=== PATIENT | male | born 1975 | race Caucasian/White ===

== ENCOUNTER 2017-12-24 18:38 | Emergency (ER) | payer SELFPAY ==
[~2017-12-24] VITALS: Ht 170.1 cm; Wt 81.6 kg
[~2017-12-24 18:38] MED LIST: ALBUTEROL0.09 MG/A2 INH; ALL DAY ALLERGY10 MG PO; ANAPROX DS550 MG PO; CLARITIN10 MG PO; CLEOCIN150 MG PO; DELTASONE20 M1 PO; GOOD NEIGHBOR150 MG PO; HYDROCODONE BIT1 T11 PO; IBU800 MG PO; LEVOFLOXACIN500 MG PO; MASON NATURAL2000 IU PO; PREDNISONE20 MG PO; ROBITUSSIN AC 110 ML PO; SKELAXIN800 MG PO
[2017-12-24] MEDS ORDERED: PROAIR HFA8.5 GM INH (20:40)
[2017-12-24] MEDS ORDERED: MEDROL DOSEPAK4 MG PO (20:40)
[2017-12-24] MEDS ORDERED: ZITHROMAX250 MG PO (20:40)
== END 2017-12-24 20:51 | disposition home or self-care (01) ==
LOC: ED 18:38
DX: J40 Bronchitis, not specified as acute or chronic (principal); F10.10 Alcohol abuse, uncomplicated; Z88.0 Allergy status to penicillin; Z79.899 Other long term (current) drug therapy

== ENCOUNTER 2018-02-26 22:06 | Emergency (ER) | payer SELFPAY ==
[~2018-02-26] VITALS: Ht 167.6 cm; Wt 81.6 kg
[~2018-02-26 22:06] MED LIST changes: +MEDROL DOSEPAK4 MG PO; +PROAIR HFA8.5 GM INH; +ZITHROMAX250 MG PO
[2018-02-26 22:36] LABS: HEMATOCRIT 42.2 % (42.0-52.0); MEAN CELL VOLUME 89.4 fl (80.0-94.0); MEAN CORPUSCULAR HGB 29.7 pg (27.0-31.0); MEAN CORPUSCULAR HGB CONC 33.2 g/dl (33.0-37.0); MEAN PLATELET VOLUME 9.9 fl (9.6-12.3); PLATELET COUNT AUTOMATED 347 10*3/uL (130-400); RED BLOOD COUNT 4.72 10*6/uL (4.50-5.90); RED CELL DISTRI WIDTH 13.2 % (0-14.5)
[2018-02-26 22:54] LABS: ALBUMIN 4.1 gm/dl (3.1-4.5); BUN 26 mg/dl (7-24); CHLORIDE 100 mmol/L (98-107); CREATININE 1.25 mg/dL (0.70-1.30); POTASSIUM 4.1 mmol/L (3.5-5.1); SGOT/AST 23 IU/L (3-35); SGPT/ALT 54 U/L (12-78); SODIUM 135 mmol/L (136-145); TOTAL PROTEIN 7.7 gm/dL (6.4-8.2)
[2018-02-26 22:55] LABS: PLATELET SUFFICIENCY NORMAL (NORMAL); TOTAL CELLS COUNTED 100 #CELLS
[2018-02-26 22:57] LABS: ALKALINE PHOSPHATASE 88 U/L (45-117); TROPONIN I < 0.015 ng/ml (<0.045)
[2018-02-26] MEDS ORDERED: SEPTDS PO (23:26)
== END 2018-02-26 23:48 | disposition home or self-care (01) ==
LOC: ED 22:06
PROVIDERS: Nurse Practitioner Family
DX: J40 Bronchitis, not specified as acute or chronic (principal); Z79.899 Other long term (current) drug therapy; Z88.0 Allergy status to penicillin

== ENCOUNTER → 2022-08-26 | Outpatient (CLI) | payer OTHER ==
[~2022-08-26] MED LIST changes: +SEPTDS PO
[2022-08-27 16:07] LABS: t-TRANSGLUTAMINASE (tTG) IGA <2 U/mL (0-3); t-TRANSGLUTAMINASE (tTG) IgG <2 U/mL (0-5)
== END | disposition home or self-care (01) ==
LOC: LAB 09:20
PROVIDERS: ATTEND Nurse Practitioner Family
DX: R19.7 Diarrhea, unspecified (principal)

== ENCOUNTER → 2024-02-12 | Outpatient (CLI) | payer OTHER | END | disposition home or self-care (01) | LOC: RAD 09:54 | PROVIDERS: ATTEND Nurse Practitioner Family | DX: M25.511 Pain in right shoulder (principal) ==